=== PATIENT | female | born 1990 | race Caucasian/White ===

== ENCOUNTER 2021-10-11 22:30 | Emergency (ER) | payer SELFPAY ==
[~2021-10-11] VITALS: Ht 162.6 cm; Wt 72.6 kg
--- NOTE | 2021-10-11 22:40 | NUR ---
[id number] FOR DEPRESSION +ETOH -S/I -H/I. PATIENT ALERT AND ORIENTED X3. AMBULATORY WITH NON LABORED BREATHING IN BED 12 ON MONITOR AND POX. PATIENT AWAITING MD GRANT.
--- NOTE | 2021-10-11 22:42 | NUR ---
JENNIFER GONZALES (FRIEND) [phone]
--- NOTE | 2021-10-11 23:00 | NUR ---
urine and covid collected
--- NOTE | 2021-10-11 23:01 | NUR ---
lab at bedside
[2021-10-11 23:17] LABS: BASOPHILS % (AUTO) 0.5 % (0.0-2.0); EOSINOPHILS % (AUTO) 0.7 % (0.0-6.0); HEMATOCRIT 43 % (33-45); HEMOGLOBIN 14.6 g/dL (11.5-14.8); LYMPHOCYTES # (AUTO) 2.2 K/uL (0.8-4.8); LYMPHOCYTES % (AUTO) 22.2 % (20.0-44.0); MEAN CORPUSCULAR HGB CONC 34 g/dl (31.0-36.0); MEAN CORPUSCULAR VOLUME 94 fL (82-100); MONOCYTES # (AUTO) 0.7 K/uL (0.1-1.30); MONOCYTES % (AUTO) 7.2 % (2.0-12.0); NEUTROPHILS # (AUTO) 6.8 K/uL (1.8-8.9); NEUTROPHILS % (AUTO) 69.4 % (43.0-81.0); PLATELET COUNT (AUTO) 411 K/uL (150-450); RED BLOOD CELL COUNT(AUTO) 4.56 MIL/uL (4.0-5.2); WHITE BLOOD COUNT (AUTO) 9.7 K/uL (4.3-11.0)
[2021-10-11 23:28] LABS: BILIRUBIN,URINE NEGATIVE (NEGATIVE); CALCIUM, SERUM 8.9 mg/dL (8.5-10.1); COLOR,URINE YELLOW (YELLOW); CREATININE 0.6 mg/dL (0.6-1.3); LEUKOCYTE ESTERASE ,URINE TRACE (NEGATIVE); NITRITE, URINE POSITIVE (NEGATIVE); PROTEIN,URINE TRACE mg/dl (NEGATIVE); UGLUCOSE NEGATIVE (NEGATIVE); UROBILINOGEN,URINE 0.2 EU/dL (0.2)
[2021-10-11 23:42] LABS: BILIRUBIN,DIRECT 0.1 mg/dL (0.0-0.2); BILIRUBIN,TOTAL 0.3 mg/dL (0.2-1.0); TOTAL PROTEIN, SERUM 8.5 g/dL (6.4-8.2)
[2021-10-12] MEDS ORDERED: ONDANSETRON HCL/PF 4 MG/2 ML VIAL IM ONE (01:00)
[2021-10-12] MEDS ORDERED: ONDANSETRON 4 MG TAB.RAPDIS ONE (01:01)
[2021-10-12] MEDS ORDERED: ONDANSETRON 4 MG TAB.RAPDIS PO ONE (01:30)
[2021-10-12 02:50] LABS: BACTERIA,URINE Many /HPF (None Seen); RBC,URINE 0-2 /HPF (0-2); SQUAMOUS EPITHELIAL CELL,UR Few /HPF (None Seen); WBC,URINE 0-2 /HPF (0-3)
[2021-10-12] MEDS ORDERED: CHLORDIAZEPOXIDE HCL 25 MG CAPSULE PO ONE (03:00)
[2021-10-12] MEDS ORDERED: CHLORDIAZEPOXIDE HCL 25 MG CAPSULE ONE (03:05)
[2021-10-12] MEDS ORDERED: LORAZEPAM 1 MG TABLET PO ONE (08:00)
[2021-10-12] MEDS ORDERED: LORAZEPAM 1 MG TABLET ONE (08:00)
[2021-10-12] MEDS ORDERED: METOCLOPRAMIDE HCL 10 MG TABLET ONE (08:00)
[2021-10-12] MEDS ORDERED: METOCLOPRAMIDE HCL 10 MG TABLET PO ONE (08:00)
[2021-10-12] MEDS ORDERED: CHLO25CA22 PO (09:06)
[2021-10-12 09:13] VITALS: BP 118/77
--- NOTE | 2021-10-12 09:14 | NUR ---
Patient discharged to home in stable condition. Written and verbal after care instructions given. Patient verbalizes understanding of instruction.
== END 2021-10-12 09:13 | disposition home or self-care (01) ==
LOC: ER 22:34
DX: F32.A Depression, unspecified (principal); F10.129 Alcohol abuse with intoxication, unspecified; Y90.8 Blood alcohol level of 240 mg/100 ml or more; Z20.822 Contact with and (suspected) exposure to COVID-19; F15.129 Other stimulant abuse with intoxication, unspecified
CPT/HCPCS: 99285; 85025; 80048; 87077; 87086; 80076; 87186; 81001; 36415; 87426; 80143; 80320; 80307; J7030; C9803; J8597; Q0162; G0480

== ENCOUNTER 2022-01-05 21:38 | Emergency (ER) | payer SELFPAY ==
[~2022-01-05] VITALS: Ht 162.6 cm; Wt 72.6 kg
[~2022-01-05 21:38] MED LIST: CHLO25CA22 PO
[2022-01-05] MEDS ORDERED: LORAZEPAM INJ 2 MG/ML VIAL ONE (22:45)
[2022-01-05] MEDS ORDERED: ONDANSETRON HCL/PF 4 MG/2 ML VIAL ONE (22:46)
--- NOTE | 2022-01-05 22:59 | NUR ---
Patient [id number] from home, c/o nausea vomiting since this morning, admits on "drinking vodka 2 shots". On room air, breathing evenly and unlabored. Connected to the monitor and pulse ox. kept comfortable, will continue to monitor accordingly.
[2022-01-05] MEDS ORDERED: ONDANSETRON HCL/PF 4 MG/2 ML VIAL IVP ONE (23:00)
[2022-01-05] MEDS ORDERED: LORAZEPAM INJ 2 MG/ML VIAL IV ONE (23:00)
[2022-01-05] MEDS ORDERED: IV NS 0.9% 1,000 ML BAG IV ONE (23:00)
[2022-01-05 23:33] LABS: BASOPHILS # (AUTO) 0.1 K/uL (0.0-0.2); BASOPHILS % (AUTO) 1.2 % (0.0-2.0); EOSINOPHILS % (AUTO) 0.1 % (0.0-6.0); HEMATOCRIT 43 % (33-45); HEMOGLOBIN 14.8 g/dL (11.5-14.8); LYMPHOCYTES # (AUTO) 1.4 K/uL (0.8-4.8); LYMPHOCYTES % (AUTO) 24.8 % (20.0-44.0); MEAN CORPUSCULAR HGB CONC 34 g/dl (31.0-36.0); MEAN CORPUSCULAR VOLUME 101 fL (82-100); MONOCYTES # (AUTO) 0.4 K/uL (0.1-1.30); MONOCYTES % (AUTO) 7.3 % (2.0-12.0); NEUTROPHILS # (AUTO) 3.7 K/uL (1.8-8.9); NEUTROPHILS % (AUTO) 66.6 % (43.0-81.0); PLATELET COUNT (AUTO) 352 K/uL (150-450); RED BLOOD CELL COUNT(AUTO) 4.29 MIL/uL (4.0-5.2); WHITE BLOOD COUNT (AUTO) 5.6 K/uL (4.3-11.0)
[2022-01-05 23:50] LABS: CALCIUM, SERUM 8.9 mg/dL (8.5-10.1); CREATININE 0.7 mg/dL (0.6-1.3)
[2022-01-05 23:53] LABS: BILIRUBIN,URINE NEGATIVE (NEGATIVE); COLOR,URINE DARK YELLOW (YELLOW); LEUKOCYTE ESTERASE ,URINE NEGATIVE (NEGATIVE); NITRITE, URINE NEGATIVE (NEGATIVE); PH,URINE 6.5 (5.0-8.0); PROTEIN,URINE 1+ mg/dl (NEGATIVE); UGLUCOSE NEGATIVE (NEGATIVE); UROBILINOGEN,URINE 0.2 EU/dL (0.2)
[2022-01-05 23:56] LABS: ALBUMIN 3.9 g/dL (3.4-5.0); BILIRUBIN,DIRECT 0.2 mg/dL (0.0-0.2); BILIRUBIN,TOTAL 0.6 mg/dL (0.2-1.0); TOTAL PROTEIN, SERUM 8.5 g/dL (6.4-8.2)
[2022-01-05 23:58] LABS: BACTERIA,URINE Rare /HPF (None Seen); SQUAMOUS EPITHELIAL CELL,UR Few /HPF (None Seen); WBC,URINE 0-2 /HPF (0-3)
[2022-01-06] MEDS ORDERED: ONDANSETRON HCL/PF 4 MG/2 ML VIAL ONE (00:10)
[2022-01-06] MEDS ORDERED: CHLO25CA22 PO (00:11)
[2022-01-06] MEDS ORDERED: ONDA4TAB5 PO (00:11)
[2022-01-06 00:21] VITALS: BP 118/64
--- NOTE | 2022-01-06 00:22 | NUR ---
Patient discharged to home in stable condition. Written and verbal after care instructions given. Patient verbalizes understanding of instruction.IV removed. Catheter intact and site benign. Pressure and 4x4 applied to site. No bleeding noted.
[2022-01-06] MEDS ORDERED: ONDANSETRON HCL/PF 4 MG/2 ML VIAL IV ONE (00:30)
== END 2022-01-06 00:22 | disposition home or self-care (01) ==
LOC: ER 21:40
DX: F10.20 Alcohol dependence, uncomplicated (principal); R11.2 Nausea with vomiting, unspecified; F31.9 Bipolar disorder, unspecified; Z88.0 Allergy status to penicillin; Z79.899 Other long term (current) drug therapy; Y90.9 Presence of alcohol in blood, level not specified
CPT/HCPCS: 99284; 96374; 96361; 93005; 85025; 80048; 83690; 80076; 81001; 36415; 85730; 96376; J2405 ×2; J7030; J2060